=== PATIENT | female | born 2005 | race Caucasian/White ===

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

== ENCOUNTER 2023-02-15 20:01 | Emergency (ER) | payer OTHER ==
[2023-02-15 20:18] VITALS: RESP 18; TEMP 98.4
[2023-02-15] MEDS ORDERED: ONDANSETRON ODT 4 MG TAB PO STA (20:29)
[2023-02-15] MEDS ORDERED: KETOROLAC 15 MG/ML 1 ML VIAL IM STA (20:29)
--- NOTE | 2023-02-15 20:52 | ED ---
Head Injury HPI - General Chief complaint: Head Injury Stated complaint: hit head Time Seen by Provider: 02/15/23 20:23 Source: patient, RN notes reviewed Mode of arrival: ambulatory Limitations: no limitations - History of Present Illness Initial comments: This is a 18-year-old female who presents to the emergency department for a head injury. States that 4 days ago, she hit the front of her head on a metal shelf at work. 2 days ago, she proceeded to hit the front of her head on a glass shelf. Denies any loss of consciousness either time. States that she hit the same spot, the right front of her head each time. Since the head injuries, she's had nausea, ongoing migraines, and feels "foggy". She does note a history of migraines, which she treats with Flexeril, because she states that is all she has for this. Denies any fevers, chills, sore throat, cough, dyspnea, chest pain, palpitations, abdominal pain, diarrhea, or back pain. MD Complaint: head injury - Related Data Home Medications Medication Instructions Recorded Confirmed Medroxyprogesterone Acetate 150 mg IM Q90D 04/01/20 12/02/22 [Depo-Provera] Dicyclomine [Bentyl] 20 mg PO QID 12/02/22 12/02/22 Pantoprazole [Protonix] 40 mg PO BID 12/02/22 12/02/22 Previous Rx's Medication Instructions Recorded Nitrofurantoin Monohyd/M-Cryst 100 mg PO Q12HR 5 Days #10 cap 12/02/22 [Macrobid] Ondansetron Odt [Zofran Odt] 4 mg PO Q8HR PRN #10 tab 02/15/23 Allergies/Adverse reactions: Allergies Allergy/AdvReac Type Severity Reaction Status Date / Time nystatin AdvReac Severe Irritated Verified 02/15/23 20:18 skin and made it slough off codeine AdvReac PANCREATITI Verified 02/15/23 20:18 [From Tylenol-Codeine #3] S Review of Systems ROS Statement: Those systems with pertinent positive or pertinent negative responses have been documented in the HPI. ROS Other: All systems not noted in ROS Statement are negative. 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 History of Any Multi-Drug Resistant Organisms: None Reported Past Surgical History: Cholecystectomy Additional Past Surgical History / Comment(s): wisdom teeth; lap gabby 04/25 Past Anesthesia/Blood Transfusion Reactions: Previous Problems w/ Anesthesia Additional Past Anesthesia/Blood Transfusion Reaction / Comment(s): WOKE UP DURING CHOLECYSTECTOMY AND WISDOM TEETH Past Psychological History: ADD/ADHD, Anxiety, Depression Smoking Status: Current every day smoker Past Alcohol Use History: Occasional Past Drug Use History: Marijuana - Past Family History Mother Family Medical History: No Reported History Additional Family Medical History / Comment(s): BIPOLAR Father Family Medical History: Unable to Obtain Additional Family Medical History / Comment(s): BIPOLAR General Exam Limitations: no limitations General appearance: alert, in no apparent distress Head exam: Present: atraumatic, normocephalic, normal inspection Eye exam: Present: normal appearance, PERRL, EOMI. Absent: scleral icterus, conjunctival injection, periorbital swelling Respiratory exam: Present: normal lung sounds bilaterally. Absent: respiratory distress, wheezes, rales, rhonchi, stridor Cardiovascular Exam: Present: regular rate, normal rhythm, normal heart sounds. Absent: systolic murmur, diastolic murmur, rubs, gallop, clicks Neurological exam: Present: alert, oriented X3, CN II-XII intact Psychiatric exam: Present: normal affect, normal mood Skin exam: Present: warm, dry, intact, normal color. Absent: rash Course Vital Signs 02/15/23 02/15/23 20:15 22:17 Temperature 98.4 F Pulse Rate 92 52 L Respiratory 18 18 Rate Blood Pressure 121/85 112/75 O2 Sat by Pulse 98 99 Oximetry Medical Decision Making - Medical Decision Making This is a 18-year-old female who presents to the emergency department for a head injury. Was pt. sent in by a medical professional or institution? @ -No Did you speak to anyone other than the patient for history? @ -No Did you review nursing and triage notes? @ -Yes, and I agree, it is accurate with regards to the patient's symptoms. Were old charts reviewed? @ -No Differential Diagnosis? @ -Differential Diagnosis Head Injury: Contusion, hematoma, intracranial hemorrhage, skull fracture, whiplash, concussion, this is not meant to be an all-inclusive list. EKG interpreted by me (3pts min.)? @ -Not obtained X-rays interpreted by me (1pt min.)? @ -Not obtained CT interpreted by me (1pt min.)? @ -Computed tomography scan of the brain obtained. My interpretation identifies no evidence of an acute intracranial hemorrhage or skull fracture. U/S interpreted by me (1pt. min.)? @ -Not obtained What testing was considered but not performed? (CT, X-rays, U/S, labs)? Why? @ -None What meds were considered but not given? Why? @ -None Did you discuss the management of the patient with other professionals? @ -No Did you reconcile home meds? @ -No Was smoking cessation discussed for >3mins.? @ -No Was critical care preformed (if so, how long)? @ -No Were there social determinants of health that impacted care today? How? (Homelessness, low income, unemployed, alcoholism, drug addiction, transportation, low edu. Level, literacy, decrease access to med. care, group home, rehab)? @ -No Was there de-escalation of care discussed even if they declined? (Discuss DNR or withdrawal of care, Hospice)? @ -No What co-morbidities impacted this encounter? (DM, HTN, Smoking, COPD, CAD, Cancer, CVA, Hep., AIDS, mental health diagnosis, sleep apnea, morbid obesity)? @ -Migraines, fibromyalgia Was patient admitted / discharged? @ -Discharged. Computed tomography scan of the brain obtained revealing no acute process. She was initially given IM Toradol and Zofran. She had improvement in the nausea, however the headache persisted. States that this feels like a migraine for her, which she has difficulty controlling at home regardless. She was subsequently given a migraine cocktail consisting of Decadron, Reglan, and Benadryl. She was also given an additional dose of Toradol. On reevaluation, patient found to be sleeping comfortably with improvement in her pain. Advised alternating with Ibuprofen and Tylenol as needed for additional pain relief. Prescription for Zofran provided as well for any additional nausea and vomiting. Advised close follow-up with her primary care provider for reevaluation and further discussion of these migraines to discuss additional treatment options. Advised that Flexeril is not an effective medication for ongoing management of migraines or headaches in general. Undiagnosed new problem with uncertain prognosis? @ -None Drug Therapy requiring intensive monitoring for toxicity (Heparin, Nitro, Insulin, Cardizem)? @ -None Were any procedures done? @ -None Diagnosis/symptom? @ -Head injury, headache Acute, or Chronic, or Acute on Chronic? @ -Acute Uncomplicated (without systemic symptoms) or Complicated (systemic symptoms)? @ -Uncomplicated Side effects of treatment? @ -None Exacerbation, Progression, or Severe Exacerbation] @ -Not applicable Poses a threat to life or bodily function? @ -No Return precautions reviewed in depth, the patient is instructed to return to the emergency department with any new, worsening, or concerning symptoms. Patient verbalized understanding. This case was discussed in detail with the attending ED physician, Dr. Contreras. Presentation, findings, and treatment plan discussed in detail as well. - Radiology Data Radiology results: report reviewed, image reviewed Disposition Clinical Impression: Closed head injury, Headache Disposition: HOME SELF-CARE Instructions (If sedation given, give patient instructions): Migraine Headache (ED), Head Injury (ED), Acute Headache (ED) Additional Instructions: Return to the emergency department with any new, worsening, or concerning symptoms. Alternate with ibuprofen and Tylenol as needed for any additional headaches. You can take the Zofran up to every 8 hours as needed for nausea and vomiting. Follow up with your primary care provider in 1-2 days for reevaluation of symptoms and to discuss further management of your migraines. Prescriptions: Ondansetron Odt [Zofran Odt] 4 mg PO Q8HR PRN #10 tab PRN Reason: Nausea And Vomiting Is patient prescribed a controlled substance at d/c from ED?: No Referrals: Chito Arambula MD [Primary Care Provider] - 1-2 days
--- NOTE | 2023-02-15 21:57 | CT ---
EXAMINATION TYPE: CT brain wo con CT DLP: 1103.4 mGycm, Automated exposure control for dose reduction was used. DATE OF EXAM: 02/15/2023 9:49 PM COMPARISON: 08/25/2012. CLINICAL INDICATION:Female, 18 years old with history of Head injury, Head injury Tuesday and again on Tuesday, No LOC. Pt C/O dizziness, nausea, headache. TECHNIQUE: Brain: Axial CT images of the brain were obtained with coronal and sagittal reformats created and rev iewed. Contrast used: None. Oral contrast used: None. FINDINGS: Brain: Extra-axial spaces: No abnormal extra-axial fluid collections. Ventricular system: Within normal limits Cerebral parenchyma: No acute intraparenchymal hemorrhage or mass effect. The simpson-white junction is well differentiated. Cerebellum: Unremarkable. Mass effect: No evidence of midline shift. Intracranial vasculature: unremarkable Soft tissues: Normal. Calvarium/osseous structures: No depressed skull fracture. Paranasal sinuses and mastoid air cells: Mild scattered paranasal sinus disease. Visualized orbits: Orbital contents are intact. IMPRESSION: No acute intracranial process.
[2023-02-15] MEDS ORDERED: diphenhydrAMINE 50 MG/ML 1 ML VIAL IVP STA (22:13)
[2023-02-15] MEDS ORDERED: METOCLOPRAMIDE 5 MG/ML 2 ML VIAL IVP STA (22:13)
[2023-02-15] MEDS ORDERED: DEXAMETHASONE SOD PHOSPHATE 10 MG/ML 1 ML VIAL IVP STA (22:13)
[2023-02-15] MEDS ORDERED: KETOROLAC 15 MG/ML 1 ML VIAL IVP STA (22:13)
[2023-02-15 22:40] VITALS: BP 112/75; PULSE 52
[2023-02-15] MEDS ORDERED: ONDANSETRON 4 MG ODT STARTER PACK 2 TAB BTL PO STA (23:05)
[2023-02-15] MEDS ORDERED: IBUPROFEN 600 MG STARTER PACK 4 TAB BTL PO STA (23:05)
== END 2023-02-15 23:16 | disposition home or self-care (01) ==
LOC: EC 20:01
DX: S09.90XA Unspecified injury of head, initial encounter (principal); J45.909 Unspecified asthma, uncomplicated; K21.9 Gastro-esophageal reflux disease without esophagitis; F17.200 Nicotine dependence, unspecified, uncomplicated; F12.90 Cannabis use, unspecified, uncomplicated; Z79.899 Other long term (current) drug therapy; Z88.3 Allergy status to other anti-infective agents; Z88.5 Allergy status to narcotic agent; W22.8XXA Striking against or struck by other objects, initial encounter; Y99.0 Civilian activity done for income or pay
CPT/HCPCS: 70450; 96372; 96374; 96375; 99284

== ENCOUNTER → 2023-06-07 | Outpatient (CLI) | payer OTHER ==
--- NOTE | 2023-06-07 20:59 | FL ---
EXAMINATION TYPE: FL arthrogram injection wrist RT DATE OF EXAM: 06/07/2023 HISTORY: 18-year-old female S63.031A. Pain after injury. PROCEDURES: 1. Right wrist fluoroscopy. 2. Right wrist arthrogram. Total images: 9. Total fluoroscopy time: 29 seconds. DAP: 5 mGycm2 TECHNIQUE: The procedure, risks, and alternatives, were discussed with the patient, who requested that nicole acevedo The consent form was signed, and teach-back occurred. The site/side of the procedure was marked with a line with participation by the patient. The accompan aida paperwork was verified for consistency. A directed history and physical exam was performed prior to the procedure. Medication reconciliation was performed by ancillary personnel. A critical pause was performed with assisting personnel just pr ior to the procedure, and the patient's identity was confirmed using 2 identifiers. Imaging guidance was utilized to select the precise skin entry point just prior to the procedure. Don nickolas radioscaphoid joint approach was utilized. The dorsal right wrist was prepped and draped in the usual sterile fashion and local 1% lidocaine ane sthesia was instilled. Under fluoroscopic guidance, a 1.5 inch long 25-gauge needle was introduced i nto the dorsal radioscaphoid joint space. Appropriate needle tip position was confirmed after a small amount of contrast injection. Approximately 2 ml of a mixture of Isovue-370 iodinated contrast, sterile saline, and Gadavist was in jected into the glenohumeral joint. The needle was then removed. The patient tolerated the procedure well. There was no immediate complication. After the procedure, the patient's condition was unchanged. Estimated blood loss was minimal. Postprocedure images show prominent extension of contrast into the distal radioulnar joint suggesting a defect within the TFCC. No obvious contrast extending into the midcarpal compartment though the sc apholunate interval does appear slightly prominent at 2 mm. IMPRESSION: Technically successful right wrist arthrogram injection for MRI. No immediate complication. Routine p ostprocedure precautions were discussed with the patient. Patient was instructed to monitor for signs of infection.
--- NOTE | 2023-06-07 21:10 | MR ---
EXAMINATION TYPE: MR wrist arthrogram RT w con DATE OF EXAM: 06/07/2023 COMPARISON: Arthrogram injection same day HISTORY: 18-year-old female S63.031A, Rt wrist pain, swelling, limited movement, SL ligament tear Technique: Multiplanar, multisequence images of the right wrist were obtained after intra-articular a dministration of a gadolinium mixture. Please refer to our Milad injection report of the same day f or further details. FINDINGS: There is prominence to the scapholunate interval with intermediate signal intensity but no extension of contrast to the into the midcarpal compartment. There is a small 4 mm dorsal ganglion cyst noted. There is a large third thickness defect of the central disc of the TFC with free extension of contras t into the distal radioulnar joint. There is extensive edema within the distal radial metaphysis with predominantly transversely oriented signal extending to the dorsal cortex and John's tubercle. On sagittal T1, this is a vague interme diate intensity linear configuration. Satisfactory distention of the wrist joint with small amount of iatrogenic extravasation along the ul tosha aspect of the wrist. There is justin anterior subluxation of the ECU to perch on top of the ulnar styloid process. Some het erogeneity of the overlying subsheath here. Some inadvertent administration of contrast to extend along the second and third dorsal extensor tend on sheaths. Normal caliber to the median nerve. The volar flexor tendons appear satisfactory. IMPRESSION: 1. Subacute, healing, incomplete transverse fracture of the distal radial metaphysis. Prominent resi dual marrow edema remains here. 2. Large through thickness tear involving the central disc of the TFC with free extension of contrast into the distal radioulnar joint. 3. ECU subsheath sprain with anterior ECU tendon subluxation. 4. Stretch injury to the scapholunate ligament but without tear or any abnormal extension of contrast into the midcarpal compartment. Small 4 mm dorsal ganglion cyst here.
== END | disposition home or self-care (01) ==
LOC: RADFLMAIN 12:42
PROVIDERS: ATTEND Surgery Surgery of the Hand
DX: S52.591D Other fractures of lower end of right radius, subsequent encounter for closed fracture with routine healing (principal); S63.03 Subluxation and dislocation of midcarpal joint; R60.0 Localized edema
CPT/HCPCS: 25246; 73115; 73222; A9585; Q9967

== ENCOUNTER 2023-07-26 23:17 | Emergency (ER) | payer OTHER ==
[2023-07-26] MEDS ORDERED: ONDANSETRON 4 MG/2 ML VIAL IVP STA (23:36)
[2023-07-26] MEDS ORDERED: SODIUM CHLORIDE 0.9% 1,000 ML IV STA (23:36)
--- NOTE | 2023-07-27 00:57 | ED ---
Nausea/Vomiting/Diarrhea HPI - General Chief complaint: Nausea/Vomiting/Diarrhea Stated complaint: n/v/d Time Seen by Provider: 07/26/23 23:21 Source: patient Mode of arrival: ambulatory Limitations: no limitations - History of Present Illness Initial comments: 18-year-old female presenting with chief complaint of nausea and vomiting and diarrhea ongoing for the last day. Patient was seen at [facility] yesterday was diagnosed with UTI, she was started on antibiotics and Zofran. States that today she has had persistent vomiting and diarrhea and she is unable to hold down foods or liquids. She denies any dysuria, hematuria, flank pain, f ever, chills, chest pain, difficulty breathing, cough, congestion, sore throat, localized abdominal pain. - Related Data Home Medications Medication Instructions Recorded Confirmed Medroxyprogesterone Acetate 150 mg IM Q90D 04/01/20 12/02/22 [Depo-Provera] Dicyclomine [Bentyl] 20 mg PO QID 12/02/22 12/02/22 Pantoprazole [Protonix] 40 mg PO BID 12/02/22 12/02/22 Previous Rx's Medication Instructions Recorded Nitrofurantoin Monohyd/M-Cryst 100 mg PO Q12HR 5 Days #10 cap 12/02/22 [Macrobid] Ondansetron Odt [Zofran Odt] 4 mg PO Q8HR PRN #10 tab 02/15/23 HYDROcodone/APAP 5-325MG [Tyrone 1 tab PO Q6HR PRN 3 Days #12 tab 04/29/23 5-325] Dicyclomine [Bentyl] 10 mg PO QID #20 capsule 07/27/23 Metoclopramide [Reglan] 10 mg PO Q6H PRN #10 tab 07/27/23 Allergies Allergy/AdvReac Type Severity Reaction Status Date / Time nystatin AdvReac Severe Irritated Verified 04/29/23 00:40 skin and made it slough off codeine AdvReac PANCREATITI Verified 04/29/23 00:40 [From Tylenol-Codeine #3] S Review of Systems ROS Statement: Those systems with pertinent positive or pertinent negative responses have been documented in the HPI. ROS Other: All systems not noted in ROS Statement are negative. 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 History of Any Multi-Drug Resistant Organisms: None Reported Past Surgical History: Cholecystectomy Additional Past Surgical History / Comment(s): wisdom teeth; lap gabby 04/25 Past Anesthesia/Blood Transfusion Reactions: Previous Problems w/ Anesthesia Additional Past Anesthesia/Blood Transfusion Reaction / Comment(s): WOKE UP DUR ING CHOLECYSTECTOMY AND WISDOM TEETH Past Psychological History: ADD/ADHD, Anxiety, Depression Smoking Status: Current every day smoker Past Alcohol Use History: Occasional Past Drug Use History: Marijuana - Past Family History Mother Family Medical History: No Reported History Additional Family Medical History / Comment(s): BIPOLAR Father Family Medical History: Unable to Obtain Additional Family Medical History / Comment(s): BIPOLAR General Exam Limitations: no limitations General appearance: alert, in no apparent distress Head exam: Present: atraumatic, normocephalic, normal inspection Eye exam: Present: normal appearance, EOMI Neck exam: Present: normal inspection Respiratory exam: Present: normal lung sounds bilaterally. Absent: respiratory distress, wheezes, rales, rhonchi, stridor Cardiovascular Exam: Present: regular rate, normal rhythm, normal heart sounds. Absent: systolic murmur, diastolic murmur, rubs, gallop, clicks GI/Abdominal exam: Present: soft. Absent: distended, tenderness, guarding, rebound, rigid Neurological exam: Present: alert, oriented X3 Psychiatric exam: Present: normal affect, normal mood Skin exam: Present: warm, dry Course Vital Signs 07/26/23 07/27/23 23:18 05:47 Temperature 98 F 98.6 F Pulse Rate 68 56 L Respiratory 16 18 Rate Blood Pressure 101/71 113/65 O2 Sat by Pulse 98 100 Oximetry Medical Decision Making - Medical Decision Making Was pt. sent in by a medical professional or institution (, PA, [employer], urgent care, hospital, or long term...) When possible be specific @ -No Did you speak to anyone other than the patient for history (EMS, parent, family, police, friend...)? What history was obtained from this source @ -No Did you review nursing and triage notes (agree or disagree)? Why? @ -I reviewed and agree with nursing and triage notes Were old charts reviewed (outside hosp., previous admission, EMS record, old EKG, old radiological studies, urgent care reports/EKG's, long term records)? Report findings @ -No old charts were reviewed Differential Diagnosis (chest pain, altered mental status, abdominal pain women, abdominal pain men, vaginal bleeding, weakness, fever, dyspnea, syncope, headache, dizziness, GI bleed, back pain, seizure, CVA, palpatations, mental health, musculoskeletal)? @ -MDM Differential Abdominal Pain Women: Appendicitis, Cholecystitis, diverticulosis, ischemic bowel, pancreatitis, hepatitis, UTI, gastroenteritis, AAA, incarcerated hernia, bowel obstruction, constipation, inflammatory bowel, hepatitis, peptic ulcer disease, splenic infarction, perforated viscus, vulvitis, ovarian torsion, PID, kidney stone, placenta abruption... This is not meant to be an all-inclusive list EKG interpreted by me (3pts min.). @ -As above X-rays interpreted by me (1pt min.). @ -None done CT interpreted by me (1pt min.). @ -None done U/S interpreted by me (1pt. min.). @ -None done What testing was considered but not performed or refused? (CT, X-rays, U/S, labs)? Why? @ -None What meds were considered but not given or refused? Why? @ -None Did you discuss the management of the patient with other professionals (professionals i.e. , PA, [employer], lab, RT, psych nurse, social science research assistant, otologist, teacher, returning officer, shelter case manager)? Give summary @ -No Was smoking cessation discussed for >3mins.? @ -No Was critical care preformed (if so, how long)? @ -No Were there social determinants of health that impacted care today? How? (Homelessness, low income, unemployed, alcoholism, drug addiction, transportation, low edu. Level, literacy, decrease access to med. care, intermediate, rehab)? @ -No Was there de-escalation of care discussed even if they declined (Discuss DNR or withdrawal of care, Hospice)? DNR status @ -No What co-morbidities impacted this encounter? (DM, HTN, Smoking, COPD, CAD, Cancer, CVA, ARF, Chemo, Hep., AIDS, mental health diagnosis, sleep apnea, morbid obesity)? @ -None Was patient admitted / discharged? Hospital course, mention meds given and route, prescriptions, significant lab abnormalities, going to OR and other pertinent info. @ -18-year-old female presenting with chief complaint of nausea vomiting diarrhea and generalized abdominal pain. She is currently being treated for UTI. History and physical exam were conducted. No leukocytosis or anemia. CMP is essentially unremarkable. Amylase and lipase are WNL. Urine is consistent with UTI for which patient is arguing treated. She is negative for influenza, RSV, and Covid. On reassessment she is resting comfortably. She is educated on today's findings, instructed to continue treatment for UTI. She is provided with a prescription for Zofran and Bentyl. Follow-up with PCP. Report back to ER with any new or worsening symptoms. Discussed return parameters and answered all questions. Patient conveyed verbal understanding and agreed to the plan. I discussed this case in detail with my attending Dr. Contreras Undiagnosed new problem with uncertain prognosis? @ -No Drug Therapy requiring intensive monitoring for toxicity (Heparin, Nitro, Insulin, Cardizem)? @ -No Were any procedures done? @ -No Diagnosis/symptom? @ -Gastroenteritis, UTI Acute, or Chronic, or Acute on Chronic? @ -Acute Uncomplicated (without systemic symptoms) or Complicated (systemic symptoms)? @ -Uncomplicated Side effects of treatment? @ -No Exacerbation, Progression, or Severe Exacerbation? @ -No Poses a threat to life or bodily function? How? (Chest pain, [place], [place], pneumonia, PE, COPD, DKA, ARF, appy, cholecystitis, CVA, Diverticulitis, Homicidal, Suicidal, threat to staff... and all critical care pts) @ -No - Lab Data Result diagrams: 07/27/23 02:00 07/27/23 04:02 Lab Results 07/27/23 07/27/23 07/27/23 Range/Units 02:00 02:35 02:51 WBC 7.3 (4.0-11.0) k/uL RBC 5.05 (3.80-5.40) m/uL Hgb 14.6 (11.4-16.0) gm/dL Hct 42.6 (34.0-46.0) % MCV 84.4 (80.0-100.0) fL MCH 29.0 (25.0-35.0) pg MCHC 34.3 (31.0-37.0) g/dL RDW 13.2 (11.5-15.5) % Plt Count 197 (150-450) k/uL MPV 9.1 Neutrophils % 61 % Lymphocytes % 26 % Monocytes % 8 % Eosinophils % 2 % Basophils % 1 % Neutrophils # 4.5 (1.3-7.7) k/uL Lymphocytes # 1.9 (1.0-4.8) k/uL Monocytes # 0.6 (0-1.0) k/uL Eosinophils # 0.2 (0-0.7) k/uL Basophils # 0.0 (0-0.2) k/uL Sodium (137-145) mmol/L Potassium (3.5-5.1) mmol/L Chloride (98-107) mmol/L Carbon Dioxide (22-30) mmol/L Anion Gap mmol/L BUN (7-17) mg/dL Creatinine (0.52-1.04) mg/dL Est GFR (CKD-EPI)AfAm (>60 ml/min/1.73 sqM) Est GFR (CKD-EPI)NonAf (>60 ml/min/1.73 sqM) Glucose (74-99) mg/dL Calcium (8.4-10.2) mg/dL Total Bilirubin (0.2-1.3) mg/dL AST (14-36) U/L ALT (4-34) U/L Alkaline Phosphatase (38-126) U/L Total Protein (6.3-8.2) g/dL Albumin (3.5-5.0) g/dL Amylase (30-110) U/L Lipase (23-300) U/L Urine Color Yellow Urine Appearance Cloudy H (Clear) Urine pH 6.0 (5.0-8.0) Ur Specific [place] 1.031 (1.001-1.035) Urine Protein 1+ H (Negative) Urine Glucose (UA) Negative (Negative) Urine Ketones 2+ H (Negative) Urine Blood Moderate H (Negative) Urine Nitrite Negative (Negative) Urine Bilirubin Negative (Negative) Urine Urobilinogen <2.0 (<2.0) mg/dL Ur Leukocyte Esterase Moderate H (Negative) Urine RBC 1 (0-5) /hpf Urine WBC 22 H (0-5) /hpf Ur Squamous Epith Cells 9 H (0-4) /hpf Urine Bacteria Many H (None) /hpf Hyaline Casts 2 (0-2) /lpf Urine Mucus Many H (None) /hpf Influenza Type A (PCR) Not Detected (Not Detectd) Influenza Type B (PCR) Not Detected (Not Detectd) RSV (PCR) Not Detected (Not Detectd) SARS-CoV-2 (PCR) Not Detected (Not Detectd) 07/27/23 Range/Units 04:02 WBC (4.0-11.0) k/uL RBC (3.80-5.40) m/uL Hgb (11.4-16.0) gm/dL Hct (34.0-46.0) % MCV (80.0-100.0) fL MCH (25.0-35.0) pg MCHC (31.0-37.0) g/dL RDW (11.5-15.5) % Plt Count (150-450) k/uL MPV Neutrophils % % Lymphocytes % % Monocytes % % Eosinophils % % Basophils % % Neutrophils # (1.3-7.7) k/uL Lymphocytes # (1.0-4.8) k/uL Monocytes # (0-1.0) k/uL Eosinophils # (0-0.7) k/uL Basophils # (0-0.2) k/uL Sodium 137 (137-145) mmol/L Potassium 3.6 (3.5-5.1) mmol/L Chloride 107 (98-107) mmol/L Carbon Dioxide 18 L (22-30) mmol/L Anion Gap 12 mmol/L BUN 8 (7-17) mg/dL Creatinine 0.67 (0.52-1.04) mg/dL Est GFR (CKD-EPI)AfAm >90 (>60 ml/min/1.73 sqM) Est GFR (CKD-EPI)NonAf >90 (>60 ml/min/1.73 sqM) Glucose 83 (74-99) mg/dL Calcium 9.4 (8.4-10.2) mg/dL Total Bilirubin 0.6 (0.2-1.3) mg/dL AST 30 (14-36) U/L ALT 25 (4-34) U/L Alkaline Phosphatase 82 (38-126) U/L Total Protein 6.8 (6.3-8.2) g/dL Albumin 4.1 (3.5-5.0) g/dL Amylase 67 (30-110) U/L Lipase 116 (23-300) U/L Urine Color Urine Appearance (Clear) Urine pH (5.0-8.0) Ur Specific [place] (1.001-1.035) Urine Protein (Negative) Urine Glucose (UA) (Negative) Urine Ketones (Negative) Urine Blood (Negative) Urine Nitrite (Negative) Urine Bilirubin (Negative) Urine Urobilinogen (<2.0) mg/dL Ur Leukocyte Esterase (Negative) Urine RBC (0-5) /hpf Urine WBC (0-5) /hpf Ur Squamous Epith Cells (0-4) /hpf Urine Bacteria (None) /hpf Hyaline Casts (0-2) /lpf Urine Mucus (None) /hpf Influenza Type A (PCR) (Not Detectd) Influenza Type B (PCR) (Not Detectd) RSV (PCR) (Not Detectd) SARS-CoV-2 (PCR) (Not Detectd) Disposition Clinical Impression: Gastroenteritis Disposition: HOME SELF-CARE Condition: Good Instructions (If sedation given, give patient instructions): Gastroenteritis (ED) Additional Instructions: Follow-up with PCP. Report back to ER with any new or worsening symptoms. Continue taking your antibiotic prescribed for urinary UTI. Prescriptions: Dicyclomine [Bentyl] 10 mg PO QID #20 capsule Metoclopramide [Reglan] 10 mg PO Q6H PRN #10 tab PRN Reason: Nausea Is patient prescribed a controlled substance at d/c from ED?: No Referrals: Samia Adhikari MD [Primary Care Provider] - 1-2 days Time of Disposition: 05:10
[2023-07-27] MEDS ORDERED: METOCLOPRAMIDE 5 MG/ML 2 ML VIAL IM PRN (01:26)
[2023-07-27] MEDS ORDERED: KETOROLAC 15 MG/ML 1 ML VIAL IM STA (01:42)
[2023-07-27 03:33] LABS: Basophils % (A) 1 %; Eosinophils # (A) 0.2 k/uL (0-0.7); Eosinophils % (A) 2 %; HCT 42.6 % (34.0-46.0); HGB 14.6 gm/dL (11.4-16.0); Lymphocytes # (A) 1.9 k/uL (1.0-4.8); Lymphocytes % (A) 26 %; MCHC 34.3 g/dL (31.0-37.0); MCV 84.4 fL (80.0-100.0); Mean Platelet Volume 9.1; Monocytes # (A) 0.6 k/uL (0-1.0); Monocytes % (A) 8 %; Neutrophils # (A) 4.5 k/uL (1.3-7.7); Neutrophils % (A) 61 %; Platelet Count 197 k/uL (150-450); RBC 5.05 m/uL (3.80-5.40); RDW 13.2 % (11.5-15.5); WBC 7.3 k/uL (4.0-11.0)
[2023-07-27 03:48] LABS: Appearance,Urine Cloudy (Clear); Bacteria,Urine Many /hpf; Bilirubin,Urine Negative (Negative); Blood,Urine Moderate (Negative); Color,Urine Yellow; Glucose,Urine (UA) Negative (Negative); Hyaline Casts,Urine 2 /lpf (0-2); Ketones,Urine 2+ (Negative); Leukocyte Esterase,Urine Moderate (Negative); Mucus,Urine Many /hpf; Nitrite,Urine Negative (Negative); Protein,Urine 1+ (Negative); RBC,Urine 1 /hpf (0-5); Specific Gravity,Urine 1.031 (1.001-1.035); Squamous Epithelial Cell,Urine 9 /hpf (0-4); Urobilinogen,Urine <2.0 mg/dL (<2.0); WBC,Urine 22 /hpf (0-5)
[2023-07-27 04:42] LABS: ALT 25 U/L (4-34); AST 30 U/L (14-36); African American GFR (CKD) >90 (>60 ml/min/1.73 sqM); Albumin 4.1 g/dL (3.5-5.0); Alkaline Phosphatase 82 U/L (38-126); Amylase 67 U/L (30-110); Anion Gap 12 mmol/L; Blood Urea Nitrogen 8 mg/dL (7-17); Calcium 9.4 mg/dL (8.4-10.2); Carbon Dioxide 18 mmol/L (22-30); Chloride 107 mmol/L (98-107); Glucose 83 mg/dL (74-99); Lipase 116 U/L (23-300); Non-African American GFR(CKD) >90 (>60 ml/min/1.73 sqM); Potassium 3.6 mmol/L (3.5-5.1); Sodium 137 mmol/L (137-145); Total Bilirubin 0.6 mg/dL (0.2-1.3); Total Protein 6.8 g/dL (6.3-8.2)
[2023-07-27 05:58] VITALS: BP 113/65; PULSE 56; RESP 18; TEMP 98.6
== END 2023-07-27 05:48 | disposition home or self-care (01) ==
LOC: EC 23:17
DX: K52.9 Noninfective gastroenteritis and colitis, unspecified (principal); J45.909 Unspecified asthma, uncomplicated; K21.9 Gastro-esophageal reflux disease without esophagitis; F41.9 Anxiety disorder, unspecified; F32.A Depression, unspecified; F17.200 Nicotine dependence, unspecified, uncomplicated; F12.90 Cannabis use, unspecified, uncomplicated; Z88.5 Allergy status to narcotic agent; Z88.1 Allergy status to other antibiotic agents; Z79.899 Other long term (current) drug therapy; Z90.49 Acquired absence of other specified parts of digestive tract; Z20.822 Contact with and (suspected) exposure to COVID-19
CPT/HCPCS: 36415; 80053; 82150; 83690; 85025; 81001; 87086; 87636; 99284; 96374; 96361 ×3; 96372 ×2; J2765; J2405; J1885